=== PATIENT | male | born 1975 ===

== ENCOUNTER → 2022-07-31 07:18 | Outpatient (CLI) | payer OTHER | END | disposition home or self-care (01) | LOC: LAB 07:18 | PROVIDERS: ATTEND Internal Medicine | DX: M25.571 Pain in right ankle and joints of right foot (principal); I10 Essential (primary) hypertension; E11.9 Type 2 diabetes mellitus without complications; E66.01 Morbid (severe) obesity due to excess calories; E78.5 Hyperlipidemia, unspecified; Z12.11 Encounter for screening for malignant neoplasm of colon; K86.9 Disease of pancreas, unspecified ==

== ENCOUNTER 2022-08-01 08:54 | Outpatient (CLI) | payer OTHER | END 2022-08-01 08:55 | disposition home or self-care (01) | LOC: LAB 08:54 | PROVIDERS: ATTEND Internal Medicine | DX: I10 Essential (primary) hypertension (principal); E66.01 Morbid (severe) obesity due to excess calories; F12.11 Cannabis abuse, in remission; E78.5 Hyperlipidemia, unspecified; E11.9 Type 2 diabetes mellitus without complications ==

== ENCOUNTER 2023-04-28 10:11 | Outpatient (CLI) | payer OTHER | END 2023-04-28 10:16 | disposition home or self-care (01) | LOC: SONOGRAMA 10:11 | PROVIDERS: ATTEND Internal Medicine Endocrinology, Diabetes & Metabolism | DX: N40.0 Benign prostatic hyperplasia without lower urinary tract symptoms (principal) ==

== ENCOUNTER 2024-03-14 09:38 | Emergency (ER) | payer OTHER ==
[~2024-03-14] VITALS: Ht 180.3 cm; Wt 149.7 kg
[2024-03-14] MEDS ORDERED: COZAAR50 MG PO (10:15)
[2024-03-14] MEDS ORDERED: ORPHENADRINE CITRATE 30 MG/ML AMPUL IM STA (12:09)
[2024-03-14] MEDS ORDERED: KETOROLAC TROMETHAMINE 60 MG VIAL IM STA (12:09)
== END 2024-03-14 13:12 | disposition home or self-care (01) ==
LOC: ER 09:40 → EDBD 09:40 → ER 09:40
DX: M54.9 Dorsalgia, unspecified (principal); I10 Essential (primary) hypertension
CPT/HCPCS: 96372; 99282; J1885; J2360